=== PATIENT | female | born 1980 | race Caucasian/White ===

== ENCOUNTER 2017-11-21 19:54 | Emergency (ER) | payer OTHER ==
[~2017-11-21] VITALS: Ht 160 cm; Wt 48.6 kg
[2017-11-21 20:16] VITALS: BP 108/65; PULSE 65; RESP 16; TEMP 98.1; O2SAT 99
[2017-11-21] MEDS ORDERED: CARA1TAB6 PO (20:36)
[2017-11-21] MEDS ORDERED: OMEP40CA2 PO (20:36)
--- NOTE | 2017-11-21 21:07 | PD ---
HPI Chief Complaint: Musculoskeletal Complaint Time Seen by Provider: 20:36 Travel History International Travel<30 days: No Contact w/Intl Traveler<30days: No Traveled to known affect area: No History of Present Illness HPI 37-year-old female presents to the ED for evaluation of 3/10 posterior upper thigh pain. Gradual onset today. Patient can identify no acute injury. States that she also noticed several areas of subcentimeter bruising on bilateral thighs. She denies chest pain, shortness of breath, palpitations, numbness, tingling, weakness, limitations to range of motion of the extremity. She states that she said a total 14 hours in the car over the past 2 days with occasional breaks. She denies oral contraception use, history of smoking, family history of DVT. She never had pain like this before. No treatment attempt at home. PFSH Past Medical History GERD: Yes Tetanus Vaccination: > 5 Years Influenza Vaccination: No ?: Not LMP: 11/21/17 Past Surgical History Cholecystectomy: Yes Social History Alcohol Use: Yes (RARELY) Tobacco Use: No Substance Use: No Allergies-Medications (Allergen,Severity, Reaction): Coded Allergies: No Known Allergies (Unverified , 11/21/17) Reported Meds & Prescriptions Reported Meds & Active Scripts Active Reported Carafate (Sucralfate) 1 Gram Tab Unknown Dose PO BID On empty stomach Omeprazole 40 Mg Cap 40 Mg PO BID Review of Systems Except as stated in HPI: all other systems reviewed are Neg Physical Exam Narrative GENERAL: Well-nourished, well-developed thin white female in no acute distress. SKIN: Focused skin assessment warm/dry. Several 1 cm bruises noted on the medial and posterior aspects of bilateral thighs. HEAD: Normocephalic. EYES: No scleral icterus. No injection or drainage. NECK: Supple, trachea midline. No JVD or lymphadenopathy. CARDIOVASCULAR: Regular rate and rhythm without murmurs, gallops, or rubs. RESPIRATORY: Breath sounds equal bilaterally. No accessory muscle use. GASTROINTESTINAL: Abdomen soft, non-tender, nondistended. MUSCULOSKELETAL: No cyanosis, or edema. FOCUSED LEFT LOWER EXTREMITY EXAM: 2+ DP pulse. No edema noted. No popliteal tenderness noted. Tenderness to palpation of the posterior thigh without palpable mass. Patient retains full, active, painless range of motion of the extremity. Cap refill less than 2 seconds. Sensation intact to light touch distally. BACK: Nontender without obvious deformity. No CVA tenderness. Data Data Last Documented VS Vital Signs Date Time Temp Pulse Resp B/P (MAP) Pulse Ox O2 Delivery O2 Flow Rate FiO2 11/21/17 20:16 98.1 65 16 108/65 (79) 99 Orders Orders Us Leg Venous Doppler (11/21/17 20:51) MDM Medical Decision Making Medical Screen Exam Complete: Yes Emergency Medical Condition: Yes Differential Diagnosis Musculoskeletal pain versus DVT versus muscle strain versus other Narrative Course 37-year-old female presents to the ED for evaluation of 3/10 posterior upper thigh pain. Gradual onset today. Patient can identify no acute injury. States that she also noticed several areas of subcentimeter bruising on bilateral thighs. She denies chest pain, shortness of breath, palpitations, numbness, tingling, weakness, limitations to range of motion of the extremity. She states that she spent a total 14 hours in the car over the past 2 days with occasional breaks. She denies oral contraception use, history of smoking, family history of DVT. She never had pain like this before. No treatment attempt at home. Vitals reviewed. Physical exam reveals several subcentimeter bruises of the anterior and posterior aspects of the bilateral thighs. There is tenderness to palpation in the posterior thigh. No masses noted. Suspicious for DVT secondary to the patient's recent car ride. Ultrasound ordered and pending. Patient signed out to Dr. Segovia at end of shift. Please see his note for disposition. Olimpia Conti Nov 21, 2017 21:07
[2017-11-21] MEDS ORDERED: IBUPROFEN 600 MG TAB PO ONE (21:30)
--- NOTE | 2017-11-21 21:39 | RADRPT ---
EXAM DATE/TIME: 11/21/2017 21:18 [facility] COMPARISON: No previous studies available for comparison. INDICATIONS : Left leg pain. MEDICAL HISTORY : Gastroesophageal reflux disease. SURGICAL HISTORY : Cholecystectomy. ENCOUNTER: Initial ACUITY: 1 day PAIN SCORE: 3/10 LOCATION: Left leg. TECHNIQUE: Venous ultrasound of the leg was performed from the inguinal ligament to the proximal calf. Real-michael e, color Doppler and spectral tracing, compression and augmentation techniques were used. FINDINGS: There is normal compressibility of the deep venous system from the inguinal region to the proximal ca lf. No echogenic clot is seen in the lumen of the common femoral, femoral, popliteal, and posterior tibial veins. There is a normal response of the venous system to proximal and distal augmentation an d respiration. CONCLUSION: Normal examination. Mick Temple MD on November 21, 2017 at 21:36 Board Certified Radiologist. This report was verified electronically.
--- NOTE | 2017-11-21 21:44 | PD ---
Physical Exam Time Seen by Provider: 21:42 Narrative The physician assistant speech language pathologist gave this patient to me to check the ultrasound and discharge if normal. Data Data Last Documented VS Vital Signs Date Time Temp Pulse Resp B/P (MAP) Pulse Ox O2 Delivery O2 Flow Rate FiO2 11/21/17 20:16 98.1 65 16 108/65 (79) 99 Orders Orders Us Leg Venous Doppler (11/21/17 20:51) Ibuprofen (Motrin) (11/21/17 21:30) MDM Medical Record Reviewed: Yes Supervised Visit with TOÑO: Yes Interpretation(s) The ultrasound is normal. Differential Diagnosis Muscle strain, DVT Narrative Course The patient has no DVT, this appears to be a muscle strain. Diagnosis Primary Impression: Muscle strain Additional Impression: Contusion of leg Med/Other Pt SpecificInfo: No Change to Meds Disposition: 01 DISCHARGE HOME Condition: Stable Cedric Segovia MD Nov 21, 2017 21:44
== END 2017-11-22 00:08 | disposition home or self-care (01) ==
LOC: PHEFT 19:54
DX: S76.912A Strain of unspecified muscles, fascia and tendons at thigh level, left thigh, initial encounter (principal); S76.911A Strain of unspecified muscles, fascia and tendons at thigh level, right thigh, initial encounter; S70.12XA Contusion of left thigh, initial encounter; S70.11XA Contusion of right thigh, initial encounter; K21.9 Gastro-esophageal reflux disease without esophagitis; X58.XXXA Exposure to other specified factors, initial encounter; Z79.899 Other long term (current) drug therapy
CPT/HCPCS: 93971; 99284

== ENCOUNTER 2018-02-06 21:05 | Emergency (ER) | payer OTHER ==
[~2018-02-06] VITALS: Ht 160 cm; Wt 50.0 kg
[~2018-02-06 21:05] MED LIST: CARA1TAB6 PO; OMEP40CA2 PO
[2018-02-06 21:24] VITALS: BP 125/64; PULSE 85; RESP 17; TEMP 98.6; O2SAT 98
[2018-02-06 23:20] VITALS: RESP 18; O2SAT 99
[2018-02-06 23:25] VITALS: BP 101/68; PULSE 75; RESP 16; O2SAT 99
[2018-02-07] MEDS ORDERED: SODIUM CHLORIDE 0.9% FLUSH 10 ML FLUSH IVF PRN (00:15)
[2018-02-07 00:30] VITALS: BP 101/63; PULSE 75; RESP 16; O2SAT 99
[2018-02-07 00:33] VITALS: BP_SYST 101; BP_SYST 107; BP_DIAS 63; PULSE 69; RESP 16; O2SAT 99
[2018-02-07 00:34] LABS: BASOPHIL % 0.3 % (0.0-2.0); EOSINOPHIL % 0.5 % (0.0-4.0); HEMATOCRIT 41.5 % (35.0-46.0); LYMPH % 29.1 % (9.0-44.0); LYMPHOCYTE # 2.2 TH/MM3 (1.0-4.8); MEAN CELL VOLUME 87.8 FL (80.0-100.0); MEAN CORPUSCULAR HEMOGLOBIN 29.7 PG (27.0-34.0); MEAN CORPUSCULAR HGB CONC 33.8 % (32.0-36.0); MEAN PLATELET VOLUME 8.7 FL (7.0-11.0); MONO % 6.8 % (0.0-8.0); MONOCYTE # 0.5 TH/MM3 (0-0.9); NEUT % 63.3 % (16.0-70.0); PLATELET COUNT 172 TH/MM3 (150-450); RED BLOOD COUNT 4.73 MIL/MM3 (4.00-5.30); RED CELL DISTRIBUTION WIDTH 12.8 % (11.6-17.2); WHITE BLOOD COUNT 7.7 TH/MM3 (4.0-11.0)
--- NOTE | 2018-02-07 00:35 | RADRPT ---
EXAM DATE/TIME: 02/07/2018 00:16 [facility] COMPARISON: No previous studies available for comparison. INDICATIONS : Chest pain. MEDICAL HISTORY : Gastroesophageal reflux disease. SURGICAL HISTORY : Cholecystectomy. ENCOUNTER: Initial ACUITY: 1 day PAIN SCORE: 7/10 LOCATION: Bilateral chest FINDINGS: PA and lateral views of the chest demonstrate the lungs to be symmetrically aerated without evidence of mass, infiltrate or effusion. The cardiomediastinal contours are unremarkable. Osseous structure s are intact. Breast implants are present. There is mild scoliosis. There are overlying electrocardio gram leads. CONCLUSION: No acute disease. Eric Francis MD on February 07, 2018 at 0:32 Board Certified Radiologist. This report was verified electronically.
[2018-02-07 00:39] LABS: CHLORIDE 105 MEQ/L (98-107); SODIUM (NA) 138 MEQ/L (136-145)
[2018-02-07 00:41] LABS: CALCIUM 8.1 MG/DL (8.5-10.1)
[2018-02-07 00:42] LABS: BICARBONATE 25.1 MEQ/L (21.0-32.0); BLOOD UREA NITROGEN 16 MG/DL (7-18); GLUCOSE,RANDOM 88 MG/DL (74-106); MAGNESIUM 2.1 MG/DL (1.5-2.5)
[2018-02-07 00:45] LABS: CREATININE 0.67 MG/DL (0.50-1.00); GLOMERULAR FILTRATION RATE 99 ML/MIN (>89); INTERNATIONAL NORMALIZED RATIO 1.1 RATIO; PROTHROMBIN TIME - PATIENT 11.2 SEC (9.8-11.6)
[2018-02-07 00:47] LABS: D-DIMER 0.21 MG/L FEU (0.00-0.50)
[2018-02-07 00:50] LABS: TROPONIN I LESS THAN 0.02 NG/ML (0.02-0.05)
[2018-02-07] MEDS ORDERED: KETOROLAC TROMETHAMINE 30 MG/ML (IVP) VIAL IV PUSH ONE (01:00)
[2018-02-07] MEDS ORDERED: SODIUM CHLORID 0.9% 500 ML INJ 500 ML IV ONE (01:00)
[2018-02-07 01:39] VITALS: BP 105/75; PULSE 72; RESP 17; O2SAT 99
--- NOTE | 2018-02-07 02:07 | PD ---
HPI Chief Complaint: Chest Pain Time Seen by Provider: 00:15 Travel History International Travel<30 days: No Contact w/Intl Traveler<30days: No Traveled to known affect area: No History of Present Illness HPI 37 year old female here by private transportation with one hour persistent chest tightness. Mild shortness of breath no sweats, nausea, vomiting, or referred pain. No recent travel, bedrest, or surgeries. No BCP or tobacco use. Pain is 4/10 in intensity. Has had similar pain before but not as long lasting. Patient has taken no medications for discomfort. No recent illness, no fever or chills. PFSH Past Medical History Narrative Medical anxiety, kidney surgery; occasional alcohol; nursing notes reviewed Anxiety: Yes (PANIC ATTACKS) Diminished Hearing: No GERD: Yes Psychiatric: Yes (PTSD) Tetanus Vaccination: < 5 Years Influenza Vaccination: No ?: Not LMP: 01/15/18 : 8 Para: 7 Miscarriage: 1 Past Surgical History Cholecystectomy: Yes Genitourinary Surgery: Yes (RIGHT KIDNEY ATTACHMENT) Other Surgery: Yes (REPAIR DEVIATED SEPTUM) Social History Alcohol Use: Yes () Tobacco Use: No (2006) Substance Use: No Allergies-Medications (Allergen,Severity, Reaction): Coded Allergies: No Known Allergies (Unverified , 02/06/18) Reported Meds & Prescriptions Reported Meds & Active Scripts Active Reported Carafate (Sucralfate) 1 Gram Tab Unknown Dose PO BID On empty stomach Omeprazole 40 Mg Cap 40 Mg PO BID Review of Systems Except as stated in HPI: all other systems reviewed are Neg General / Constitutional: No: Fever, Chills HENT: No: Sore Throat, Congestion Cardiovascular: Positive: Chest Pain or Discomfort, No: Palpitations, Diaphoresis, Syncope Respiratory: Positive: Shortness of Breath, No: Cough, Wheezing, Pleuritic Pain Gastrointestinal: No: Nausea, Vomiting, Abdominal Pain Genitourinary: No: Dysuria, Flank Pain Musculoskeletal: No: Cramping, Edema, Pain Skin: No Rash Neurologic: No: Weakness, Dizziness, Syncope, Focal Abnormalities, Coordination Problem Psychiatric: Positive: Anxiety Hematologic/Lymphatic: No: Lymph Node Enlargement Physical Exam Narrative GENERAL: Well developed well nourished female in no acute distress, no respiratory distress. SKIN: Warm and dry. HEAD: Normocephalic. EYES: No scleral icterus. No injection or drainage. NECK: Supple, trachea midline. No JVD or lymphadenopathy. CARDIOVASCULAR: Regular rate and rhythm without murmurs, gallops, or rubs. RESPIRATORY: Breath sounds equal bilaterally. No accessory muscle use. GASTROINTESTINAL: Abdomen soft, non-tender, nondistended. MUSCULOSKELETAL: No cyanosis, or edema. BACK: Nontender without obvious deformity. No CVA tenderness. Data Data Last Documented VS Vital Signs Date Time Temp Pulse Resp B/P (MAP) Pulse Ox O2 Delivery O2 Flow Rate FiO2 02/07/18 03:10 02/07/18 02:50 73 16 99 Room Air 02/06/18 21:24 98.6 Orders Orders Electrocardiogram (02/06/18 21:11) Basic Metabolic Panel (Bmp) (02/07/18 00:10) Ckmb (Isoenzyme) Profile (02/07/18 00:10) Complete Blood Count With Diff (02/07/18 00:10) D-Dimer (02/07/18 00:10) Magnesium (Mg) (02/07/18 00:10) Prothrombin Time / Inr (Pt) (02/07/18 00:10) Act Partial Throm Time (Ptt) (02/07/18 00:10) Troponin I (02/07/18 00:10) Ecg Monitoring (02/07/18 00:10) Bilateral Bp Monitoring (02/07/18 00:10) Iv Access Insert/Monitor (02/07/18 00:10) Oximetry (02/07/18 00:10) Oxygen Administration (02/07/18 00:10) Sodium Chloride 0.9% Flush (Ns Flush) (02/07/18 00:15) Ed Urine Pregnancytest Poc (02/07/18 00:10) Chest, Pa & Lat (02/07/18 ) Ketorolac Inj (Toradol Inj) (02/07/18 01:00) Sodium Chlorid 0.9% 500 Ml Inj (Ns 500 M (02/07/18 01:00) Ed Discharge Order (02/07/18 01:59) Labs Laboratory Tests Test 02/07/18 00:15 White Blood Count 7.7 TH/MM3 Red Blood Count 4.73 MIL/MM3 Hemoglobin 14.0 GM/DL Hematocrit 41.5 % Mean Corpuscular Volume 87.8 FL Mean Corpuscular Hemoglobin 29.7 PG Mean Corpuscular Hemoglobin Concent 33.8 % Red Cell Distribution Width 12.8 % Platelet Count 172 TH/MM3 Mean Platelet Volume 8.7 FL Neutrophils (%) (Auto) 63.3 % Lymphocytes (%) (Auto) 29.1 % Monocytes (%) (Auto) 6.8 % Eosinophils (%) (Auto) 0.5 % Basophils (%) (Auto) 0.3 % Neutrophils # (Auto) 5.0 TH/MM3 Lymphocytes # (Auto) 2.2 TH/MM3 Monocytes # (Auto) 0.5 TH/MM3 Eosinophils # (Auto) 0.0 TH/MM3 Basophils # (Auto) 0.0 TH/MM3 CBC Comment DIFF FINAL Differential Comment Prothrombin Time 11.2 SEC Prothromb Time International Ratio 1.1 RATIO Activated Partial Thromboplast Time 26.8 SEC D-Dimer Quantitative (PE/DVT) 0.21 MG/L FEU Blood Urea Nitrogen 16 MG/DL Creatinine 0.67 MG/DL Random Glucose 88 MG/DL Calcium Level 8.1 MG/DL Magnesium Level 2.1 MG/DL Sodium Level 138 MEQ/L Potassium Level 3.5 MEQ/L Chloride Level 105 MEQ/L Carbon Dioxide Level 25.1 MEQ/L Anion Gap 8 MEQ/L Estimat Glomerular Filtration Rate 99 ML/MIN Total Creatine Kinase 57 U/L Troponin I LESS THAN 0.02 NG/ML MDM Medical Decision Making Medical Screen Exam Complete: Yes Emergency Medical Condition: Yes Medical Record Reviewed: Yes Interpretation(s) Trop: less than 0.02, not elevated d-dimer: 0.29 not elevated Last Impressions Chest X-Ray 02/07/18 0000 Signed Impressions: Service Date/Time: Wednesday, February 07, 2018 00:16 - CONCLUSION: No acute disease. Eric Francis MD CBC & BMP Diagram 02/07/18 00:15 Calcium Level 8.1 L, Magnesium Level 2.1 Vital Signs Date Time Temp Pulse Resp B/P (MAP) Pulse Ox O2 Delivery O2 Flow Rate FiO2 02/07/18 03:10 02/07/18 02:50 73 16 101/62 (75) 99 Room Air 02/07/18 01:39 72 17 105/75 (85) 99 Room Air 02/07/18 00:33 69 16 107/63 (78) 99 Room Air 101/63 (76) 02/07/18 00:30 75 16 101/63 (76) 99 Room Air 02/06/18 23:25 75 16 101/68 (79) 99 Room Air 02/06/18 23:21 75 16 99 Room Air 02/06/18 23:20 99 Room Air 02/06/18 23:20 18 99 Room Air 02/06/18 21:24 98.6 85 17 125/64 (84) 98 EKG: normal sinus rhythm rate 80, right ventricular conduction delay no ST elevation Differential Diagnosis chest pain, musculoskeletal pain, PE, anxiety disorder; unlikely ACS, NM Narrative Course Patient placed on electronic device monitor with continuous pulse oximetry; IV access obtained specimens collected. EKG sinus without ST elevation; discomfort 2/10. Patient given Toradol and IV flui9d bolus x 1 Symptoms resolved; patient aware labs within normal range and is stable for outpatient management. Diagnosis Primary Impression: Atypical chest pain Referrals: Primary Care Physician call for appointment Patient Instructions: General Instructions Additional Instructions: Increase fluid hydration Take ibuprofen 400 mg every 6 hours as needed for pain Associates inflammation Return to the emergency department for any concerns or change in condition Follow-up with your primary care provider Disposition: 01 DISCHARGE HOME Condition: Stable Anais Morejon MD Feb 07, 2018 02:07
[2018-02-07 02:50] VITALS: BP 101/62; PULSE 73; RESP 16; O2SAT 99
--- NOTE | 2018-02-07 19:21 | EKG ---
Date Performed: 02/06/2018 Time Performed: 21:19:20 PTAGE: 37 years EKG: Sinus rhythm POSSIBLE RIGHT VENTRICULAR CONDUCTION DELAY BORDERLINE ECG NO PREVIOUS TRACING DOCTOR: Esperanza Lewis Interpretating Date/Time 02/07/2018 19:18:31
== END 2018-02-07 03:11 | disposition home or self-care (01) ==
LOC: PHED 21:05
DX: R07.89 Other chest pain (principal); R06.02 Shortness of breath; R94.31 Abnormal electrocardiogram [ECG] [EKG]; K21.9 Gastro-esophageal reflux disease without esophagitis; Z86.59 Personal history of other mental and behavioral disorders
CPT/HCPCS: 71046; 80048; 82550; 83735; 84484; 84703; 85025; 85379; 85610; 85730; 93005; 96374; 99285; J1885; J7040

== ENCOUNTER 2018-03-09 19:31 | Emergency (ER) | payer OTHER ==
[~2018-03-09] VITALS: Ht 160 cm; Wt 49.2 kg
[2018-03-09 20:05] VITALS: BP 111/76; PULSE 72; RESP 14; TEMP 98.6; O2SAT 100
[2018-03-09] MEDS ORDERED: predniSONE 50 MG TAB PO ONE (21:00)
[2018-03-09] MEDS ORDERED: PRED50 PO (21:12)
--- NOTE | 2018-03-09 21:12 | PD ---
HPI Chief Complaint: Allergic/Adverse Reaction Time Seen by Provider: 20:49 Travel History International Travel<30 days: No Contact w/Intl Traveler<30days: No Traveled to known affect area: No History of Present Illness HPI Patient is a 37 year old female who comes in complaining of an itchy rash. She says it has been going on for the past 5 days and started on her arms and spread to her abdomen. She says it is itching. She has tried Benadryl and cortisone cream without relief. She denies any SOB or facial or throat swelling. She says she started taking Collagen supplements 2 weeks ago, but she stopped 3 days ago. She continues to see the rash spread despite stopping the supplement. She denies any other new soaps, lotions or detergents. Severity is mild. PFSH Past Medical History Hx Anticoagulant Therapy: No Anxiety: Yes (PANIC ATTACKS) Cardiovascular Problems: No Chemotherapy: No Cerebrovascular Accident: No Diabetes: No Diminished Hearing: No GERD: Yes Psychiatric: Yes (PTSD) Respiratory: No Tetanus Vaccination: > 5 Years Influenza Vaccination: No ?: Not LMP: 02/19/18 : 8 Para: 7 Miscarriage: 1 Past Surgical History Cholecystectomy: Yes Genitourinary Surgery: Yes (RIGHT KIDNEY ATTACHMENT) Hysterectomy: No Other Surgery: Yes (REPAIR DEVIATED SEPTUM) Social History Alcohol Use: Yes ([facility]) Tobacco Use: No (2006) Substance Use: No Allergies-Medications (Allergen,Severity, Reaction): Coded Allergies: No Known Allergies (Unverified , 03/09/18) Reported Meds & Prescriptions Reported Meds & Active Scripts Active Reported Carafate (Sucralfate) 1 Gram Tab Unknown Dose PO BID On empty stomach Omeprazole 40 Mg Cap 40 Mg PO BID Review of Systems General / Constitutional: No: Fever, Chills HENT: No: Sore Throat Respiratory: No: Shortness of Breath Gastrointestinal: No: Nausea, Vomiting Genitourinary: No: Dysuria Musculoskeletal: No: Myalgias Skin: Positive Rash, Positive Itching Neurologic: No: Weakness, Dizziness Physical Exam Narrative GENERAL: Awake and alert, in no acute distress. SKIN: Focused skin assessment warm/dry. Urticaria on both arms and the abdomen and back. HEAD: Atraumatic. Normocephalic. EYES: Pupils equal and round. No scleral icterus. No injection or drainage. ENT: Mucous membranes pink and moist. No facial swelling or pharyngeal edema. CARDIOVASCULAR: Regular rate and rhythm. No murmur appreciated. RESPIRATORY: No accessory muscle use. Clear to auscultation. Breath sounds equal bilaterally. MUSCULOSKELETAL: No obvious deformities. No clubbing. No cyanosis. No edema. NEUROLOGICAL: Awake and alert. No obvious cranial nerve deficits. Motor grossly within normal limits. Normal speech. PSYCHIATRIC: Appropriate mood and affect; insight and judgment normal. Data Data Last Documented VS Vital Signs Date Time Temp Pulse Resp B/P (MAP) Pulse Ox O2 Delivery O2 Flow Rate FiO2 03/09/18 20:05 98.6 72 14 111/76 (88) 100 Orders Orders Prednisone (Deltasone) (03/09/18 21:00) [facility] Medical Decision Making Medical Screen Exam Complete: Yes Emergency Medical Condition: Yes Medical Record Reviewed: Yes Differential Diagnosis allergic reaction vs urticaria vs dermatitis Narrative Course Patient is a 37-year-old female who comes in complaining of an itchy rash. Exam shows urticaria on the trunk and the arms. Patient given a dose of prednisone here. Given a prescription for prednisone. Advised to change to hypoallergenic soaps and detergents. Advised follow-up with a primary doctor. Advised return to the ED as needed for any worsening symptoms. Diagnosis Primary Impression: Urticaria Patient Instructions: Allergies (ED), General Instructions Additional Instructions: Start the prednisone tomorrow as you had a dose already today. Continue to take Benadryl as needed for itching. Follow-up with a primary doctor. Return to the ED as needed for any worsening symptoms. Scripts Prednisone (Prednisone) 50 Mg Tab 50 MG PO DAILY for 4 Days, #4 TAB 0 Refills Prov: Rosy Robbins MD 03/09/18 Disposition: DISCHARGE HOME Condition: Stable Rosy Robbins MD Mar 09, 2018 21:12
== END 2018-03-09 21:24 | disposition home or self-care (01) ==
LOC: PHED 19:31 → PHEFT 21:24
DX: L50.9 Urticaria, unspecified (principal); F41.9 Anxiety disorder, unspecified; K21.9 Gastro-esophageal reflux disease without esophagitis; F43.10 Post-traumatic stress disorder, unspecified
CPT/HCPCS: 99283; J7512